=== PATIENT | male | born 1940 | race Caucasian/White ===

== ENCOUNTER → 2016-12-08 | Outpatient (CLI) | payer MEDICARE ==
[~2016-12-08] MED LIST: ACETAMINOPHEN PO; AMITRYPTYLINE PO; ASPIRIN81 MG PO; COLACE PO; HYDROCODON-ACE1 EAC5 PO; HYDROCODON-ACE1 EACH PO; HYDROCODONE/APA1 T15 PO; LISINOPRIL-HCTZ1 T15 PO; NICOTINE TRANSD21 MG EXT; PLETAL50 MG PO; ROBAXIN500 MG PO; SIMVASTATIN40 MG PO; SYMBICORT 160/4.6 G1 IH
--- NOTE | ~2016-12-08 | CT57 ---
[facility] RADIOLOGY TEXT RESULTS PATIENT: LIYA PAREKH LOCATION: [facility] : 44 UNIT #: [id number] AGE: [address]: Cameron Owens MD SEX: M ORDER DR: [id number] [place] [id number] O MR#: [id number] Acc #: [id number] NAME: LIYA PAREKH : 1940 SEX: M STUDY DATE/TIME: 12/08/2016 10:52 UNIT: [facility] ROOM: STUDY DESCRIPTION: CT Chest Wo Cont Attending Physician: Cameron Owens M.D. Referring Physician: Cameron Owens M.D. Ordering Physician: Radha Maher M.D. Primary Care Physician: Radha Maher M.D. MEDICAL IMAGING REPORT This report is preliminary unless electronic signature is present. EXAM CT scan of the chest without contrast INDICATION Followup for lung cancer TECHNIQUE CT of the chest was performed without contrast. Coronal and sagittal reformatted images were obtained. This CT exam was performed with one or more of the following radiation dose reduction techniques: automatic exposure control, adjustment of mA and/or kV according to patient size, and iterative reconstruction. COMPARISON 06/02/2016 FINDINGS Emphysema. Prior right lower lobectomy. Trace pleural fluid on the right which is stable. Stable presumed scarring posterior right lung adjacent to the pleural surface. Calcified granuloma left lower lobe. No suspicious lymphadenopathy. Limited imaging of the upper abdomen demonstrates stable bilateral low-density adrenal gland nodules likely adenomas. Bone windows are unremarkable. IMPRESSION Stable right lower lobectomy. No evidence of recurrent or metastatic disease Dictated by... Dom Martinez M.D. [facility] RADIOLOGY TEXT RESULTS PATIENT: LIYA PAREKH LOCATION: [facility] : 44 UNIT #: [id number] AGE: [address]: Cameron Owens MD SEX: M ORDER DR: THIS IS AN ELECTRONICALLY VERIFIED REPORT Dom Martinez M.D. at 12/09/2016 7:35 AM Darius TD: 12/08/2016 11:42 JOB #: [id number] MEDICAL IMAGING REPORT Page 1 of 1
== END | disposition home or self-care (01) ==
LOC: SCT 10:42
DX: Z08 Encounter for follow-up examination after completed treatment for malignant neoplasm (principal); Z90.2 Acquired absence of lung [part of]; Z85.118 Personal history of other malignant neoplasm of bronchus and lung
CPT/HCPCS: 71250